=== PATIENT | female | born 1960 | race Caucasian/White ===

== ENCOUNTER → 2019-06-20 | Outpatient (CLI) | payer BC ==
[~2019-06-20] MED LIST: BYSTOLIC10 MG PO; NAPROXEN250 MG PO; TYLENOL # 31 EA PO
--- NOTE | 2019-06-20 10:25 | Diagnostic Imaging Report ---
TECHNIQUE: Magnetic resonance imaging of the RIGHT KNEE was performed WITHOUT injected contrast. HISTORY: Right knee pain COMPARISON: None available. FINDINGS: LIGAMENTS AND TENDONS: ACL: Mucoid degeneration with ganglion extending posteriorly. Edema extending into the adjacent femur. PCL: Intact Collateral ligaments: Intact Iliotibial band: Unremarkable Popliteal tendon: Intact Extensor mechanism: Intact JOINT: Menisci: Medial: Free margin attenuation without discrete tear. Lateral: Free margin attenuation without discrete tear. Articular Cartilage: Medial Compartment: Partial-thickness cartilage loss Lateral Compartment: Partial-thickness cartilage loss Patellofemoral Compartment: Partial-thickness cartilage loss Joint Fluid: The amount of fluid within the joint is within physiologic limits. BONE: No focal or infiltrative bone marrow replacing abnormality. No acute fracture. SOFT TISSUES: Otherwise, unremarkable. 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 Medial and lateral meniscus free margin attenuation without discrete tear. Tricompartmental partial-thickness cartilage loss. Signed by: Dr. Andrea Bella M.D. on 06/20/2019 10:23 AM
== END ==
LOC: MRI 08:54
PROVIDERS: ATTEND Specialist
DX: S83.281A Other tear of lateral meniscus, current injury, right knee, initial encounter (principal)